=== PATIENT | female | born 1935 | race Caucasian/White ===

== ENCOUNTER 2017-09-30 23:15 | Inpatient (IN) | payer MEDICARE, BC ==
[~2017-09-30] VITALS: Ht 149.9 cm; Wt 54.4 kg
--- NOTE | ~2017-09-30 | PROC ---
[address] [address] PROCEDURE REPORT Name: SEAN MARCOS Room: [address] IN M.R.#: [id number] Admission: 10/01/17 Attend Phys: Karlos Mireles MD Discharge: 10/03/17 Date of : 35 Report #: [id number] THIS REPORT FOR: //name// For GI report, please see the Provation report in Perceptive 7 content. By: [id number] Records Staff MANAN /VON
[~2017-09-30 23:15] MED LIST: ASPIRIN81 M2 PO; EFFEXOR XR150 MG PO; ELIQUIS5 MG PO; FLORINEF ACETA0.1 MG PO; LASIX 20 MG TAB20 MG PO; LEVOTHYROXIN0.025 MG PO; LOPRESSOR25 PO; PACERONE 200 M200 M1 PO; PLAVIX 75 MG TA75 M1 PO; POTASSIUM20 PO; PREVACID 24HR15 MG PO
[2017-09-30 23:18] VITALS: BP 228/91
[2017-09-30] MEDS ORDERED: LASIX 20 MG TAB20 MG PO (23:21)
[2017-09-30] MEDS ORDERED: POTASSIUM20 PO (23:21)
[2017-09-30] MEDS ORDERED: LOPRESSOR25 PO (23:21)
[2017-09-30] MEDS ORDERED: ASPIR 8181 MG PO (23:22)
[2017-09-30] MEDS ORDERED: XARELTO15 MG PO (23:22)
[2017-10-01] VITALS (24 sets, daily range): BP systolic 101–212; BP diastolic 39–91
[2017-10-01] LABS: ABSOLUTE LYMPHOCYTES 1.1 thou/uL (0.8-5.3); ABSOLUTE MONOCYTES 0.7 thou/uL (0.0-1.2); ABSOLUTE NEUTROPHILS 3.9 thou/uL (1.6-8.1); BASOPHILS 0.2 %; EOSINOPHILS 0.1 %; HEMATOCRIT 31.6 % (37.0-47.0); HEMOGLOBIN 10.5 gm/dL (12.0-15.0); LYMPHOCYTES 18.6 %; MCH 27.9 pg (26.0-34.0); MCHC 33.3 g/dL (28.0-37.0); MCV 83.8 fL (80.0-100.0); MONOCYTES 12.1 %; MPV 7.2 fl. (7.2-11.1); NUCLEATED RBCS 0 /100WBC; PLATELET COUNT* 201 thou/uL (150-400); RBC 3.77 mil/uL (4.20-5.00); RDW-CV 14.8 % (10.5-14.5); WBC 5.7 thou/uL (4.0-11.0)
[2017-10-01 00:13] LABS: CALCIUM 8.4 mg/dL (8.5-10.1); CREATININE 1.1 mg/dL (0.6-1.3); POTASSIUM 3.9 mmol/L (3.5-5.1)
[2017-10-01 00:16] LABS: INR 1.5; PROTIME 14.2 Seconds (9.20-11.50)
[2017-10-01 00:17] LABS: ALBUMIN 3.5 g/dL (3.4-5.0); TOTAL BILIRUBIN 0.4 mg/dL (<0.1-1.0); TOTAL PROTEIN 6.9 g/dL (6.4-8.2)
--- NOTE | 2017-10-01 03:57 | NUR ---
ASSUMED CARE OF PATIENT AT APPROX 0220 THE PATIENT REMAINS AV PACED ON THE MONITOR UNDERLYING AFIB ON THE MONITOR O2 SAT MAINTAINED ON RA CONTINUES TO BE UP WITH ASSIST OF [address]. MERAZ CONTACTED REGARDING CONCERNS ADMIT VITALS 212/73 RUE, 200/72 LUE , HR 65 BPM RECEIVED 10MG LABETALOL IV RECEIVED IN ER AT 0042-- SINCE ADMIT BUSTED BLOOD VESSEL NOTED IN LEFT EYE DENIES HEADACHE OR NAUSEA EXCESSIVE AMOUNTS OF BLOOD POURING FROM THE RECTUM RECEIVED ORDERS DOCUMENTED 2 PERIPHERAL IV ACCESS OBTAINED LW AT 0415 SPOKEN WITH REVIEWED AVAILABLE LABS AND ABDOMINAL CT HISTORY ANTICOAGULATION HX REPORTED ORDERS FOR STAT H&H AND 2 U BLOOD ON STANDBY TYPE AND CROSS CALL RESULTS INTO HIM WHEN RECEIVED PROCEED WITH MOVE TO ICU STATES DECISION REGARDING TAG VS IR INTERVENTION WILL BE MADE ONCE H&H RECEIVED SAFETY INTERVENTIONS CONTINUE BED LOWERED WHEELS LOCKED CALL LIGHT IN REACH SIDE RAILS UP REPORT TO BE GIVEN TO MIGUEL A POLICE LIAISON OFFICER PATIENT TRANSFERRED OFF UNIT AT 0415 ALL PERSONAL ITEMS SENT WITH PATIENT
[2017-10-01 04:55] LABS: HEMATOCRIT 27.9 % (37.0-47.0); HEMOGLOBIN 9.2 gm/dL (12.0-15.0); MCH 27.9 pg (26.0-34.0); MCV 84.6 fL (80.0-100.0); MPV 7.3 fl. (7.2-11.1); RBC 3.3 mil/uL (4.20-5.00); RDW-CV 14.9 % (10.5-14.5); WBC 6.4 thou/uL (4.0-11.0)
--- NOTE | 2017-10-01 05:14 | NUR ---
PT TRANSFERED DOWN TO TELE AT 0430 ALERT AND ORIENTED VS AND ASSESSMENT STABLE NSR ON THE MONITOR. SKIN INTACT DENIES ANY COMPLAINTS. STAT H&H DRAWN WILL NOTIFY GI OF RESULTS.MONITORING PT FOR BLOOD IN STOOLS. WILL CONTINUE PLAN OF CARE
--- NOTE | 2017-10-01 06:48 | NUR ---
PAGED DR SHER WITH RESULTS OF STAT H&H AND INFORMED HIM OF VS AND PT HAD ONLY ONE MED BLOODY STOOL. DR SHER SAID TO MONITOR PT STOOLS AND VS. 0615 PTS HR 110 AND PT HAD ONE MORE BLOODY BM PAGED DR SHER AWAITING RETURN CALL.
--- NOTE | 2017-10-01 07:30 | NUR ---
0753 ASSUMED CARE OF PT. PLEASE SEE DOCMENTED ASSESSMENT. PT TRANSFERRED FROM [facility] BLEED. AFEBRILE. DENIES PAIN. B/P STABLE. AV PACED ON COMPOSER TEACHING ARTIST. H/H Q 2 HOURS. KEEPING NPO UNTIL SEEN BY GI. GOALS THIS SHIFT ARE TO: MONITOR FOR SYNCOPE, MONITOR H/H, AND MONITOR FOR BLEEDING.
[2017-10-01 07:40] LABS: HEMATOCRIT 25.4 % (37.0-47.0); HEMOGLOBIN 8.4 gm/dL (12.0-15.0)
--- NOTE | 2017-10-01 09:15 | NUR ---
PT ASSISTED UP TO BSC FOR BM. WHEN ASSISTING PT BACK TO BED, PT HAD A VAGAL EPISODE ON BSC AND BECAME UNRESPONSIVE. PT PLACED BACK INTO BED, HAD INCONTINENT EPISODE, PLACED FLAT IN BED FOR BLOOD PRESSURE SUPPORT. B/P STABLE AFTER PT BACK IN BED, W/SBP IN THE 160'S. PT AWOKE TO VERBAL STIMULI AND WAS ABLE TO TELL THIS NURSE WHO SHE WAS AND WHERE SHE WAS. GI PAGED. NEW ORDERS RCV'D FOR STAT RBC TAGGED SCAN AND TO GIVE ONE UNIT OF PRBC'S. HIMS NOTIFIED WELL.
[2017-10-01 10:03] LABS: HEMATOCRIT 23.9 % (37.0-47.0); HEMOGLOBIN 7.9 gm/dL (12.0-15.0)
--- NOTE | 2017-10-01 11:15 | NUR ---
PT TO NUCLEAR MED FOR STAT TAGGED RBC SCAN. ACCOMPANIED BY ANA Colunga RN AND ROOFER APPLICATOR. MINI REPORT GIVEN TO ANA Colunga. PRBC'S INFUSING. PT GIVEN ZOFRAN PRIOR TO SCAN FOR NAUSEA.
--- NOTE | 2017-10-01 11:20 | NUR ---
NUCLEAR MED TAGGED RBC SCAN STARTED AT THIS TIME.
--- NOTE | 2017-10-01 12:35 | NUR ---
PT BACK FROM NUCLEAR MED. NAUSEA RELIEVED BY COOL CLOTH AND PRN ZOFRAN. FIRST UNIT OF PRBC'S DONE INFUSING AT 1200. DR. SHER ON UNIT. AWAITING TAGGED RBC SCAN RESULTS.
[2017-10-01 13:38] LABS: INR 1.2; PROTIME 12.1 Seconds (9.20-11.50)
--- NOTE | 2017-10-01 13:51 | NUR ---
DR. WESLEY IN W/PT. DR. SHER ON THE UNIT. PT TO HAVE COLONOSCOPY TODAY.
--- NOTE | 2017-10-01 14:15 | NUR ---
PT BACK FROM OR VIA BED. THIS NURSE WILL RECOVER PT. FAMILY UPDATED ON PLAN OF CARE.
--- NOTE | 2017-10-01 18:33 | NUR ---
OUTCOME SUMMARY: PROGRESSING TOWARDS GOALS. VAGAL EPISODE THIS AM ON BSC. RCV'D 2 UNITS PRBC'S, LAST HGB AT 10.0-PT DID GO TO OR FOR COLONSOCOPY BUT W/NO BOWEL PREP, DR. SHER UNABLE TO VISUALIZE WHERE BLEED IS COMING FROM. BOWEL PREP STARTED AT 1600 TONIGHT. NO BLOODY STOOLS SINCE PT CAME BACK FROM OR. PT WILL MOST LIKELY BE SCOPED TOMORROW OR TUESDAY DEPENDING ON HOW SHE HANDLES THE BOWEL PREP. B/P AND HR STABLE T/OUT THE DAY. PT IS AV PACED. OVERALL PROGNOSIS: GOOD.
[2017-10-01 20:25] LABS: HEMATOCRIT 34.3 % (37.0-47.0); HEMOGLOBIN 11.4 gm/dL (12.0-15.0); MCH 28.4 pg (26.0-34.0); MCHC 33.2 g/dL (28.0-37.0); MCV 85.3 fL (80.0-100.0); MPV 7.8 fl. (7.2-11.1); RBC 4.02 mil/uL (4.20-5.00); RDW-CV 14.6 % (10.5-14.5); WBC 7.1 thou/uL (4.0-11.0)
[2017-10-02] VITALS (8 sets, daily range): BP systolic 152–182; BP diastolic 59–105
[2017-10-02 01:23] LABS: HEMATOCRIT 32.6 % (37.0-47.0); MCH 28.7 pg (26.0-34.0); MCHC 33.6 g/dL (28.0-37.0); MCV 85.3 fL (80.0-100.0); MPV 7.3 fl. (7.2-11.1); RBC 3.82 mil/uL (4.20-5.00); RDW-CV 14.3 % (10.5-14.5); WBC 7.9 thou/uL (4.0-11.0)
--- NOTE | 2017-10-02 04:59 | NUR ---
PROGRESSION TOWARDS GOALS. ASSESSMENT AND VS OBTAINED, SEE CHARTING.DRAFTER (CAD) ELECTRICAL ON TRACING A PACED. PT FINISHED HER COLON PREP LAST NIGHT AND HAS HAD SEVERAL BM. BM WAS LIGHT BROWN WITH TINTS OF BLOOD THROUGH OUT. AROUND 0000 PT HAD ASKED IF THERE WAS A CATHETER FOR YOUR BOTTOM AND THE FLEXISEAL WAS EXPLAINED TO THE PT. PT AGREED TO PLACE THE FLEXISEAL IN. SHE STILL HAS SOME BM COMING OUT AROUND THE FLEXISEAL. CBC HAS BEEN DRAWN EVERY 6 HRS AND THE H AND H HAVE BEEN STABLE.
[2017-10-02 05:37] LABS: HEMATOCRIT 31.7 % (37.0-47.0); HEMOGLOBIN 10.6 gm/dL (12.0-15.0); MCH 28.4 pg (26.0-34.0); MCHC 33.4 g/dL (28.0-37.0); MCV 84.9 fL (80.0-100.0); MPV 7.7 fl. (7.2-11.1); RBC 3.74 mil/uL (4.20-5.00); RDW-CV 14.5 % (10.5-14.5); WBC 9.4 thou/uL (4.0-11.0)
[2017-10-02 05:57] LABS: CALCIUM 8.1 mg/dL (8.5-10.1); CREATININE 0.8 mg/dL (0.6-1.3); MAGNESIUM 2.1 mg/dL (1.8-2.4); POTASSIUM 3.7 mmol/L (3.5-5.1)
--- NOTE | 2017-10-02 07:30 | NUR ---
0730 ASSUMED CARE OF PT. PLEASE SEE DOCUMENTED ASSESSMENT. PT NPO FOR POSSIBLE COLONOSCOPY SCOPE TODAY (PER HIMS). DR. MERAZ IN TO SEE PT. PT NOW MED/SURG TELE. BOWEL PREP COMPLETED. DENIES PAIN. ROOM AIR. GOALS THIS SHIFT ARE TO: MONITOR CBC, MONITOR BLEEDING, AND COLONOSCOPY.
[2017-10-02 07:42] LABS: HEMATOCRIT 30.1 % (37.0-47.0); HEMOGLOBIN 10.3 gm/dL (12.0-15.0); MCH 28.7 pg (26.0-34.0); MCHC 34.1 g/dL (28.0-37.0); MPV 7.4 fl. (7.2-11.1); RBC 3.58 mil/uL (4.20-5.00); RDW-CV 14.2 % (10.5-14.5); WBC 7.9 thou/uL (4.0-11.0)
--- NOTE | 2017-10-02 09:30 | NUR ---
UPDATED DR. SHER ON PT STATUS. NEW ORDERS RCV'D. PT TO START GOLYTELY PREP. CLEAR LIQUIDS THROUGH TOMORROW AT 8 AM, THEN NPO AFTER 8 AM TOMORROW. PT TO HAVE COLONOSCOPY TOMORROW. HOUSE SUP NOTIFIED TO PLACE PT ON SCHEDULE.
[2017-10-02 10:01] LABS: HEMATOCRIT 29.7 % (37.0-47.0); HEMOGLOBIN 10.1 gm/dL (12.0-15.0)
[2017-10-02 13:45] LABS: HEMATOCRIT 25.5 % (37.0-47.0); HEMOGLOBIN 8.7 gm/dL (12.0-15.0); MCHC 33.9 g/dL (28.0-37.0); MCV 85.5 fL (80.0-100.0); MPV 7.3 fl. (7.2-11.1); RBC 2.99 mil/uL (4.20-5.00); RDW-CV 14.4 % (10.5-14.5); WBC 6.3 thou/uL (4.0-11.0)
--- NOTE | 2017-10-02 14:45 | NUR ---
[facility] FAXED TO [facility].
--- NOTE | 2017-10-02 15:25 | NUR ---
PT TRANSFERRED UPSTAIRS TO ROOM 218 VIA W/CHAIR. ALL BELONGINGS SENT W/PT. REPORT GIVEN TO TUSHAR MOBLEY. NOTIFIED PT'S DAUGHTER, SRIDHAR, THAT PT HAD TRANSFERRED UPSTAIRS TO [facility].
--- NOTE | 2017-10-02 16:47 | NUR ---
RECEIVED REPORT FROM ABHAY IN ICU. PT TRANSFERED TO TELE FLOOR AT 1530. PT ORIENTED TO ROOM, BED AND CALL LIGHT. PT COMMUNICATES UNDERSTANDING. VSS. O2 SAT 98% ON RA. PT A&O X4, PLEASANT. REVIEWED CHARTING DONE BY NURSE ABHAY, THIS NURSE AGREES WITH CHARTING COMPLETED. DANIELLE CATHETER IS NOW OUT. PT CONTINUING WITH BOWEL PREP FOR COLONOSCOPY TOMORROW. USING BEDSIDE COMMODE WITH STANDBY ASSIST. PT ON CLD THROUGHT TODAY; NPO IN AM. DAUGHTER AT BEDSIDE. LOW FALL RISK PRECAUTIONS IN PLACE. CALL LIGHT IS WITHIN REACH. WILL CONTINUE TO MONITOR.
--- NOTE | 2017-10-02 18:22 | NUR ---
VSS. PT REMAINS A&O X4. CORPORATE TRAVEL CONSULTANT IN PLACE WITH NO CHANGES. PT DENIES PAIN OR DISCOMFORT. PT TOLERATING CLD. PT CONTINUING WITH BOWEL PREP - STOOLS DARK YELLOW NOW. DAUGHTER WAS AT BEDSIDE BUT HAS NOW GONE HOME. IV PATENT AND INFUING IVF. PT CURRENTLY SITTING IN BEDSIDE CHAIR. LOW FALL RISK PRECAUTIONS ARE IN PLACE. CALL LIGHT IS WITHIN REACH. HOURLY ROUNDING PERFORMED. WILL CONTINUE TO MONITOR FOR DURATION OF SHIFT.
[2017-10-03] VITALS (7 sets, daily range): BP systolic 133–185; BP diastolic 59–82
--- NOTE | 2017-10-03 00:46 | NUR ---
PATIENT AWAKE IN BED, ALERT AND ORIENTED X 4, SCHEDULED FOR COLONOSCOPY IN AFTERNOON. NPO AFTER 8AM. CONT. CL LIQ. DENIES COMPLAINTS OF PAIN OR DISCOMFORT AT THIS TIME.
[2017-10-03 05:37] LABS: HEMATOCRIT 27.4 % (37.0-47.0); HEMOGLOBIN 9.2 gm/dL (12.0-15.0); MCH 28.5 pg (26.0-34.0); MCHC 33.8 g/dL (28.0-37.0); MCV 84.4 fL (80.0-100.0); MPV 7.9 fl. (7.2-11.1); RBC 3.25 mil/uL (4.20-5.00); RDW-CV 14.3 % (10.5-14.5); WBC 5.9 thou/uL (4.0-11.0)
--- NOTE | 2017-10-03 06:30 | NUR ---
PATIENT CONT. TO HAVE STOOL, CLEAR TO YELLOW. NPO AFTER 8AM.
--- NOTE | 2017-10-03 11:49 | NUR ---
Pt out of room for colon, will f/u later
--- NOTE | 2017-10-03 12:27 | EKG ---
[place] [address] ELECTROCARDIOGRAM REPORT Name: SEAN MARCOS Room: [address] ADM IN .R.#: [id number] Admission: 10/01/17 Attend Phys: Karlos Mireles MD Discharge: Date of : 35 Report #: [id number] THIS REPORT FOR: //name// [facility] Test Date: 2017-10-03 Test Time: 10:24:39 Pat Name: SEAN MARCOS Department: Room: [address] Gender: F Vp Analytics: ARIS : 1935 Requested By: Sheron Pierre Order Number: [id number] Alexandra MD: Teodoro Rouse Measurements Intervals [place] Rate: 61 P: 86 DC: 165 QRS: 37 QRSD: 89 T: 33 QT: 565 QTc: 570 Interpretive Statements Sinus rhythm Borderline T wave abnormalities Prolonged QT interval Compared to ECG 02/23/2017 21:05:41 Myocardial infarct finding no longer present Possible ischemia no longer present Electronically Signed On 10-03-2017 12:27:43 CDT by Teodoro Rouse [email or web address] <ELECTRONICALLY SIGNED> By: Teodoro Rouse MD, FACC 10/03/17 1227 1024 1024 Teodoro Rouse MD, [facility] /EPI
[2017-10-03] MEDS ORDERED: MIRALAX17 GM PO (16:30)
--- NOTE | 2017-10-03 19:40 | NUR ---
WRITTEN AND VERBAL DISCHARGE INSTRUCTIONS GIVEN WITH UNDERSTANDING. ESCORTED TO CAR BY FAMILY AND STAFF PER W/C. DISMISSED.
--- NOTE | 2017-10-10 15:07 | CON ---
[address] [address] CONSULTATION Name: SEAN MARCOS Room: [address] IN M.R.#: [id number] Admission: 10/01/17 Attend Phys: Karlos Mireles MD Discharge: 10/03/17 Date of : 35 Report #: [id number] THIS REPORT FOR: //name// CC: Lg Mireles DATE OF SERVICE: 10/01/2017 REASON FOR CONSULT: GI bleed. HISTORY OF PRESENT ILLNESS: This is an 82-year-old female who is well known to us as she had history of choledocholithiasis and underwent ERCP and stenting back in 03/2017. The patient presented with GI bleed and her hemoglobin has gradually dropped. The patient is on anticoagulation therapy for AFib. Apparently, the last dose was on night. PAST MEDICAL HISTORY: Significant for history of choledocholithiasis, status post ERCP and cholecystectomy, depression, hypertension, hypothyroidism, AFib, appendectomy, history of pacemaker placement. ALLERGIES: SIGNIFICANT TO MEPERIDINE AND CODEINE. MEDICATIONS: Please refer to hospital [facility]. SOCIAL HISTORY: The patient denies tobacco or alcohol use. FAMILY HISTORY: Noncontributory. PHYSICAL EXAMINATION: VITAL SIGNS: Reveals blood pressure of 136/59, respirations 17, pulse 60, temperature 97.3. LUNGS: Clear. CARDIOVASCULAR: Irregular, but regular rate. ABDOMEN: Soft, nontender, nondistended. Bowel sounds are positive. LABORATORY DATA: Revealed sodium of 138, potassium 3.9, BUN is 14, creatinine 1.1, glucose is 121. Liver function test is within normal limits. INR is 1.5. WBC is 6.4 with hemoglobin of 7.9 down from 10.5, platelet is 187. IMAGING: CT of abdomen and pelvis was obtained. There is diverticulosis throughout the sigmoid colon and thickened wall of the sigmoid. There is no evidence of pericolonic abscess or high grade pelvic inflammation. ASSESSMENT AND PLAN: We will type and cross her with 2 [place] [address] CONSULTATION Name: SEAN MARCOS Room: [address] IN ..#: [id number] Admission: 10/01/17 Attend Phys: Karlos Mireles MD Discharge: 10/03/17 Date of : 35 Report #: [id number] transfuse 1 unit. We will consider RBC tagged scan and if this is a colonic bleed, we may consider performing a colonoscopy. We will make further recommendation once the RBC tag scan results available. <ELECTRONICALLY SIGNED> By: Sheron Pierre MD 10/10/17 1507 1227 [id number] Pierre MD /nt
[2018-05-02] MEDS ORDERED: XARELTO15 MG PO (09:43)
[2018-05-02] MEDS ORDERED: COREG25 MG PO (13:10)
[2018-05-02] MEDS ORDERED: KEFLEX500 M1 PO (13:10)
== END 2017-10-03 19:40 | disposition home or self-care (01) | DRG 813 ==
LOC: M.ERS 23:15 → M.2W 10-01 01:16 → M.TBA-ER 10-01 01:16 → M.ICU 10-01 01:16 → M.2W 10-01 02:03 → M.ICU 10-01 04:33 → M.2W 10-02 15:35
PROVIDERS: Internal Medicine Gastroenterology; Nurse Practitioner Family; ADMIT Internal Medicine
PROC: 30233N1 Transfusion of Nonautologous Red Blood Cells into Peripheral Vein, Percutaneous Approach (ICD-10-PCS; principal; 2017-10-01)
PROC: 0DJD8ZZ Inspection of Lower Intestinal Tract, Via Natural or Artificial Opening Endoscopic (ICD-10-PCS; principal; 2017-10-01)
PROC: 0DJD8ZZ Inspection of Lower Intestinal Tract, Via Natural or Artificial Opening Endoscopic (ICD-10-PCS; 2017-10-03)
DX: D68.32 Hemorrhagic disorder due to extrinsic circulating anticoagulants (principal); K57.31 Diverticulosis of large intestine without perforation or abscess with bleeding; D62 Acute posthemorrhagic anemia; I16.1 Hypertensive emergency; F32.9 Major depressive disorder, single episode, unspecified; I10 Essential (primary) hypertension; E03.9 Hypothyroidism, unspecified; K21.9 Gastro-esophageal reflux disease without esophagitis; K64.4 Residual hemorrhoidal skin tags; K64.8 Other hemorrhoids; Z66 Do not resuscitate; I48.91 Unspecified atrial fibrillation; T45.7X5A Adverse effect of anticoagulant antagonists, vitamin K and other coagulants, initial encounter; Y92.89 Other specified places as the place of occurrence of the external cause; Z90.49 Acquired absence of other specified parts of digestive tract; Z90.710 Acquired absence of both cervix and uterus; Z90.722 Acquired absence of ovaries, bilateral; Z95.0 Presence of cardiac pacemaker; Z88.5 Allergy status to narcotic agent; Z88.8 Allergy status to other drugs, medicaments and biological substances; Z82.49 Family history of ischemic heart disease and other diseases of the circulatory system

== ENCOUNTER → 2018-05-02 | Outpatient (CLI) | payer MEDICARE, BC ==
[~2018-05-02] VITALS: Ht 152.4 cm; Wt 49.9 kg
[~2018-05-02] MED LIST changes: +ASPIR 8181 MG PO; +COREG25 MG PO; +KEFLEX500 M1 PO; +MIRALAX17 GM PO; +XARELTO15 MG PO
[2018-05-02 09:39] VITALS: BP 168/94
[2018-05-02 09:45] LABS: HEMATOCRIT 41.4 % (37.0-47.0); HEMOGLOBIN 13.1 gm/dL (12.0-15.0); MCH 25.6 pg (26.0-34.0); MCHC 31.6 g/dL (28.0-37.0); MCV 81.1 fL (80.0-100.0); MPV 7.7 fl. (7.2-11.1); RBC 5.1 mil/uL (4.20-5.00); RDW-CV 15.6 % (10.5-14.5); WBC 7.9 thou/uL (4.0-11.0)
[2018-05-02 09:48] LABS: ANION GAP 10 mmol/L (7-16); APTT 29.9 Seconds (25.0-31.3); BUN 9 mg/dL (7-18); CALCIUM 8.8 mg/dL (8.5-10.1); CHLORIDE 98 mmol/L (98-107); CO2 28 mmol/L (21-32); CREATININE 1.1 mg/dL (0.6-1.3); GLUCOSE 86 mg/dL (70-99); POTASSIUM 3.4 mmol/L (3.5-5.1); PROTIME 10.4 Seconds (9.20-11.50); SODIUM 136 mmol/L (136-145)
[2018-05-02 09:52] LABS: ALBUMIN 3.7 g/dL (3.4-5.0); ALKALINE PHOSPHATASE 123 U/L (46-116); CHOLESTEROL 274 mg/dL (<200); HDL CHOLESTEROL 59 mg/dL (>40); LDL CHOLESTEROL 190 mg/dL (<100); SGOT 22 U/L (15-37); SGPT 15 U/L (30-65); TC:HDL 4.6 Ratio (Not establshd); TOTAL BILIRUBIN 0.4 mg/dL (<0.1-1.0); TRIGLYCERIDE 127 mg/dL (<150); VLDL 25 mg/dL (<40)
[2018-05-02 09:53] LABS: SERUM ASSESSMENT Clear
[2018-05-02 11:46] VITALS: BP 184/89
[2018-05-02 12:15] VITALS: BP 196/90
[2018-05-02 12:30] VITALS: BP 196/90
[2018-05-02 12:45] VITALS: BP 186/89
--- NOTE | 2018-05-16 19:37 | CARD ---
[address] [address] CARDIAC CATH REPORT Name: SEAN MARCOS Room: [facility] Santos#: [id number] Admission: 05/02/18 Attend Phys: Vance Guerrero MD Discharge: Date of : 35 Report #: [id number] THIS REPORT FOR: //name// APPROVED REPORT Study performed: 05/02/2018 10:20:17 Patient Status: Out-Patient Room #: Event Personnel: Jamie Parra Digital Imaging Specialist, Ana Baugh RTR Monitor, Asa Kuhn (Rachell) Elizabeth Chicas Brittany RN Professor Of Food Biochemistry Exam: Generator Change for a Dual Chamber Permanent Pacemaker The patient is a 83 year-old female with a history of . Conscious Sedation Start time: 11:15 End Time: 11:29 Fentanyl 25 mcg Versed 1 mg Implanted Devices: [address], serial number [id number] Procedure The patient underwent informed consent. We discussed the details of the procedure including the risks, which include, but not limited to bleeding, infection, vascular damage, cardiac perforation, and pneumothorax. After informed consent was obtained the patient was brought to the interventional radiology lab. The area of the left chest was prepped and draped in sterile fashion. Local anesthesia was achieved with 1% lidocaine. Next after an initial incision was made over the existing dual-chamber pulse generator the generator was explanted using electrocautery and blunt dissection. The generator was detached from the atrial and ventricular lead. The pacemaker pocket was flushed with antibody solution. A new dual-chamber pacing generator was attached to the atrial and ventricular lead. The redundant lead and generator were replaced within the right pocket. The deep tissues were closed with interrupted stitches of 2-0 Vicryl. The skin incision was then closed with a single subcuticular stitch of 4-0 Vicryl. Several Steri-Strips were placed across the incision. A sterile Telfa dressing was then covered with a Tegaderm. The patient tolerated the procedure well without consultation. Electrode Parameters P Wave: 1.8 mV R Wave: greater than 12.0 [place] [address] CARDIAC CATH REPORT Name: SEAN MARCOS [id number] Admission: 05/02/18 Attend Phys: Vance Guerrero MD Discharge: Date of : 35 Report #: [id number] Atrial Threshold: not performed Ventricular Threshold: 1.25 V at 1.0 ms Atrial Resistance: 400 ohms Ventricular Resistance: 630 ohms Conclusion 1. Dual-chamber pulse generator at elective replacement. 2. Dual-chamber pulse generator replaced. Recommendations 1. Follow-up site check in one week. 2. Follow-up device interrogation in one month. <ELECTRONICALLY SIGNED> By: Jamie Parra MD, FACC 05/16/181936 36 36Michaeannita Parra MD, FACC /INF
--- NOTE | 2018-05-19 17:39 | H ---
[address] [address] HISTORY AND PHYSICAL Name: SEAN MARCOS Room: [facility]#: [id number] Admission: 05/02/18 Attend Phys: Vance Guerrero MD Discharge: Date of : 35 Report #: [id number] THIS REPORT FOR: //name// CC: Lg Guerrero ADMITTING DIAGNOSES: Sick sinus syndrome, status post pacemaker placement with pacemaker generator at elective replacement. HISTORY OF PRESENT ILLNESS: The patient is an 83-year-old white female with coronary artery disease and atrial fibrillation with sick sinus syndrome, status post pacemaker placement. Her pacemaker has reached elective replacement. She is without cardiac complaint at this time. PAST MEDICAL HISTORY: 1. Coronary artery disease. 2. Sick sinus syndrome, atrial fibrillation. 3. Pacemaker placement. 4. Hyperlipidemia. 5. Hypertension. ALLERGIES: CODEINE, DEMEROL. CURRENT MEDICATIONS: Lasix 20 mg daily, Prevacid 15 mg daily, metoprolol 25 mg half tablet b.i.d., potassium chloride 20 mEq daily, Xarelto 15 mg daily, Effexor XR 150 mg b.i.d. REVIEW OF SYSTEMS: As per HPI. PHYSICAL EXAMINATION: VITAL SIGNS: Blood pressure 166/86, heart rate 80. GENERAL: This is a pleasant lady in no distress. Mood and affect appropriate. HEENT: Extraocular muscles intact. Mucous membranes moist. NECK: Shows no jugular venous distention. No carotid bruits. CHEST: Reveals clear lung whipple without wheezes, rales or rhonchi. CARDIOVASCULAR: Reveals a regular rhythm with normal S1 and S2. I do not appreciate gallop or murmur. ABDOMEN: Reveals normal bowel sounds. The abdomen is soft, nontender. EXTREMITIES: Shows no clubbing, cyanosis or edema. Peripheral pulses are palpable. SKIN: Warm and dry. IMPRESSION AND RECOMMENDATIONS: 1. Coronary artery disease. 2. Sick sinus syndrome. 3. Paroxysmal atrial fibrillation. 4. Status post dual [place] [address] HISTORY AND PHYSICAL Name: SEAN MARCOS [id number] Admission: 05/02/18 Attend Phys: Vance Guerrero MD Discharge: Date of : 35 Report #: [id number] 5. Pacemaker generator elective replacement. PLAN: The patient is being admitted for elective generator replacement. Continue home medications as outlined above. <ELECTRONICALLY SIGNED> By: Jamie Parra MD, FACC 05/19/18 1739 1824 1848Micmimi Parra MD, FACC /nt
== END | disposition home or self-care (01) ==
LOC: M.CL 03-29 11:30
PROVIDERS: Internal Medicine Cardiovascular Disease
DX: Z45.010 Encounter for checking and testing of cardiac pacemaker pulse generator [battery] (principal); I48.91 Unspecified atrial fibrillation; Z98.890 Other specified postprocedural states; Z88.6 Allergy status to analgesic agent; Z79.899 Other long term (current) drug therapy; Z90.49 Acquired absence of other specified parts of digestive tract

== ENCOUNTER → 2018-05-19 | Outpatient (CLI) | payer MEDICARE, BC ==
[2018-05-19 15:49] LABS: CALCIUM 8.9 mg/dL (8.5-10.1); CREATININE 1.1 mg/dL (0.6-1.3); POTASSIUM 3.9 mmol/L (3.5-5.1)
== END ==
LOC: M.LAB 15:14
PROVIDERS: Nurse Practitioner Family
DX: I10 Essential (primary) hypertension (principal)

== ENCOUNTER → 2018-06-02 | Outpatient (CLI) | payer MEDICARE, BC ==
[2018-06-02 14:13] LABS: ALBUMIN 3.6 g/dL (3.4-5.0); CALCIUM 9.2 mg/dL (8.5-10.1); CREATININE 1.2 mg/dL (0.6-1.3); DIRECT BILIRUBIN 0.1 mg/dL (<0.1-0.3); POTASSIUM 4.4 mmol/L (3.5-5.1); TOTAL BILIRUBIN 0.5 mg/dL (<0.1-1.0); TOTAL PROTEIN 7.3 g/dL (6.4-8.2)
[2018-06-02 18:52] LABS: CHOLESTEROL 270 mg/dL (<200); HDL CHOLESTEROL 56 mg/dL (>40); LDL CHOLESTEROL 182 mg/dL (<100); TC:HDL 4.8 Ratio (Not establshd); TRIGLYCERIDE 162 mg/dL (<150); VLDL 32 mg/dL (<40)
[2018-06-02 18:54] LABS: SERUM ASSESSMENT Clear
== END ==
LOC: M.LAB 13:38
PROVIDERS: Nurse Practitioner Family
DX: E78.2 Mixed hyperlipidemia (principal); I10 Essential (primary) hypertension

== ENCOUNTER → 2018-09-11 | Outpatient (CLI) | payer MEDICARE, BC ==
--- NOTE | 2018-09-11 16:18 | 2DMMODE ---
[place] [address] 2 D/M-MODE ECHOCARDIOGRAM Name: SEAN MARCOS Room: [facility]#: [id number] Admission: 09/11/18 Attend Phys: Vance Guerrero, Discharge: Date of : 35 Date of Service: 09/11/18 1618 Report #: [id number] THIS REPORT FOR: //name// APPROVED REPORT Study performed: 09/11/2018 15:12:48 EXAM: Comprehensive 2D, Doppler, and color-flow Echocardiogram Patient Location: Out-Patient BSA: 1.48 HR: 60 bpm BP: 148/58 mmHg Other Information Study Quality: Good Indications Congestive Heart Failure 2D Dimensions IVSd: 8.50 (7-11mm) LVOT Diam: 19.77 (18-24mm) LVDd: 43.84 mm PWd: 8.39 (7-11mm) Ascending Ao: 29.22 (22-36mm) LVDs: 24.91 (25-40mm) Aortic Root: 26.43 mm Volumes Left Atrial Volume (Systole) LA ESV Index: 29.60 mL/m2 Aortic Valve AoV Peak Sagar.: 0.99 m/s AO Peak Gr.: 3.92 mmHg LVOT Max P.86 mmHg AO Mean Gr.: 1.76 mmHg LVOT Mean P.71 mmHg LVOT Max V: 0.98 m/s AO V2 VTI: 18.46 cm LVOT Mean V: 0.60 m/s MARTY (VTI): 3.25 cm2 LVOT V1 VTI: 19.56 cm AI Trigg: 1.96 m/s2 AI PHT: 680.10 ms Mitral Valve E/A Ratio: 2.77 MV Decel. Time: 203.05 ms MV E Max Sagar.: 0.70 m/[place] [address] 2 D/M-MODE ECHOCARDIOGRAM Name: SEAN MARCOS Room: [facility]#: [id number] Admission: 09/11/18 Attend Phys: Vance Guerrero, Discharge: Date of : 35 Date of Service: 09/11/18 1618 Report #: [id number] MV PHT: 58.88 ms MVA (PHT): 3.74 cm2 TDI E/Lateral E': 7.78 E/Medial E': 11.67 Medial E' Sagar.: 0.06 m/s Lateral E' Sagar.: 0.09 m/s Pulmonary Valve PV Peak Sagar.: 0.77 m/s PV Peak Gr.: 2.39 mmHg Tricuspid Valve RAP Estimate: 5.00 mmHg TR Peak Gr.: 29.80 mmHg RVSP: 34.80 mmHg PA Pressure: 34.80 mmHg Left Ventricle The left ventricle is normal size. There is normal LV segmental wall motion. There is normal left ventricular wall thickness. Left ventricular systolic function is normal. The left ventricular ejection fraction is within the normal range. LVEF is 55-60%. The left ventricular diastolic function is normal. Right Ventricle The right ventricle is normal size. The right ventricular systolic function is normal. Pacemaker lead is present in the right ventricle. Atria Left atrium is mildly dilated. The right atrium size is normal. Aortic Valve The aortic valve is normal in structure. Mild aortic regurgitation. There is no aortic valvular stenosis. Mitral Valve Mitral valve leaflets are thickened. Mild mitral regurgitation. No evidence of mitral valve stenosis. Tricuspid Valve The tricuspid valve is normal in structure. Mild tricuspid regurgitation. estimated pa pressure 40 mm Hg Pulmonic Valve The pulmonary valve is normal in structure. [place] [address] 2 D/M-MODE ECHOCARDIOGRAM Name: SEAN MARCOS Room: [facility]#: [id number] Admission: 09/11/18 Attend Phys: Vance Guerrero, Discharge: Date of : 35 Date of Service: 09/11/18 1618 Report #: [id number] Great Vessels The aortic root is normal in size. IVC is normal in size and collapses >50% with inspiration. Pericardium There is no pericardial effusion. <Conclusion> LVEF is 55-60%. Left atrium is mildly dilated. Mild aortic regurgitation. Mild mitral regurgitation. Mild tricuspid regurgitation. estimated pa pressure 40 mm Hg <ELECTRONICALLY SIGNED> By: Teodoro Rouse MD, FACC 09/11/18 1618 1618 1618 Teodoro Rouse MD, FACC /INF
== END ==
LOC: M.CRD 15:00
DX: I08.3 Combined rheumatic disorders of mitral, aortic and tricuspid valves (principal); I11.0 Hypertensive heart disease with heart failure; I50.22 Chronic systolic (congestive) heart failure; I48.0 Paroxysmal atrial fibrillation; Z88.5 Allergy status to narcotic agent; Z88.8 Allergy status to other drugs, medicaments and biological substances

== ENCOUNTER 2018-09-19 10:31 | Emergency (ER) | payer MEDICARE, BC ==
[~2018-09-19] VITALS: Ht 152.4 cm; Wt 50.8 kg
[2018-09-19] MEDS ORDERED: CEFDINIR300 MG PO (10:57)
[2018-09-19] MEDS ORDERED: COZAAR 25 MG TA25 M1 PO (10:57)
[2018-09-19] MEDS ORDERED: LASIX 20 MG TAB20 MG PO (10:58)
[2018-09-19] MEDS ORDERED: LANSOPRAZOLE15 MG PO (10:59)
[2018-09-19] MEDS ORDERED: LOPRESSOR50 PO (10:59)
[2018-09-19] MEDS ORDERED: PREDNISONE 20 M20 M1 PO (11:18)
[2018-09-19] MEDS ORDERED: AUGMENTIN 875-1 EACH PO (11:18)
[2018-09-19 11:27] VITALS: BP 180/63
[2018-09-19] MEDS ORDERED: NORCO 5-325 TA1 EACH PO (16:27)
--- NOTE | 2018-09-20 16:01 | EKG ---
[place] [address] ELECTROCARDIOGRAM REPORT Name: SEAN MARCOS Room: [facility]#: [id number] Admission: 09/19/18 Attend Phys: Discharge: 09/19/18 Date of : 35 Report #: [id number] THIS REPORT FOR: //name// [facility] ED Test Date: 2018-09-19 Test Time: 14:43:21 Pat Name: SEAN MARCOS Department: Room: Gender: F [employer] Supervisor: Barbara SALDIVAR : 1935 Requested By: Eric Stephen Order Number: [id number] MD: Dean Campos Measurements Intervals [place] Rate: 60 P: [place]: 213 QRS: 19 QRSD: 81 T: 57 QT: 473 QTc: 473 Interpretive Statements Atrial-paced rhythm Baseline wander in lead(s) V1,V2 Compared to ECG 10/03/2017 10:24:39 Sinus rhythm no longer present Electronically Signed On 09-20-2018 16:01:08 MEAT GRADING MACHINE OPERATOR by Dean Campos [email or web address] <ELECTRONICALLY SIGNED> By: Dean Campos MD, [facility] 09/20/18 1601 1443 1443 Dean Campos MD, [facility] /EPI
== END 2018-09-19 11:28 | disposition home or self-care (01) ==
LOC: M.ERS 10:31
DX: J32.9 Chronic sinusitis, unspecified (principal); K02.9 Dental caries, unspecified; I48.91 Unspecified atrial fibrillation; Z90.49 Acquired absence of other specified parts of digestive tract; Z88.5 Allergy status to narcotic agent; Z88.8 Allergy status to other drugs, medicaments and biological substances; Z90.710 Acquired absence of both cervix and uterus

== ENCOUNTER 2018-09-19 14:36 | Emergency (ER) | payer MEDICARE, BC ==
[~2018-09-19] VITALS: Ht 152.4 cm; Wt 50.8 kg
[~2018-09-19 14:36] MED LIST changes: +AUGMENTIN 875-1 EACH PO; +CEFDINIR300 MG PO; +COZAAR 25 MG TA25 M1 PO; +LANSOPRAZOLE15 MG PO; +LOPRESSOR50 PO; +PREDNISONE 20 M20 M1 PO
[2018-09-19 15:20] LABS: ABSOLUTE BASOPHILS 0.1 thou/uL (0.0-0.2); ABSOLUTE LYMPHOCYTES 1.2 thou/uL (0.8-5.3); ABSOLUTE MONOCYTES 0.6 thou/uL (0.0-1.2); ABSOLUTE NEUTROPHILS 3.8 thou/uL (1.6-8.1); EOSINOPHILS 0.1 %; HEMATOCRIT 38.1 % (37.0-47.0); HEMOGLOBIN 12.4 gm/dL (12.0-15.0); LYMPHOCYTES 21.8 %; MCH 26.4 pg (26.0-34.0); MCHC 32.5 g/dL (28.0-37.0); MCV 81.1 fL (80.0-100.0); MPV 7.9 fl. (7.2-11.1); NUCLEATED RBCS 0 /100WBC; PLATELET COUNT* 223 thou/uL (150-400); POLYS 66.1 %; RDW-CV 15.5 % (10.5-14.5); WBC 5.7 thou/uL (4.0-11.0)
[2018-09-19 15:28] LABS: ALBUMIN 3.8 g/dL (3.4-5.0); CALCIUM 9.1 mg/dL (8.5-10.1); CREATININE 1.2 mg/dL (0.6-1.3); POTASSIUM 4.5 mmol/L (3.5-5.1); TOTAL BILIRUBIN 0.5 mg/dL (<0.1-1.0); TOTAL PROTEIN 7.6 g/dL (6.4-8.2)
[2018-09-19] MEDS ORDERED: NORCO 5-325 TA1 EACH PO (16:27)
[2018-09-19 16:47] VITALS: BP 134/61
== END 2018-09-19 16:48 | disposition home or self-care (01) ==
LOC: M.ERS 14:36
PROVIDERS: Family Medicine
DX: I10 Essential (primary) hypertension (principal); K08.89 Other specified disorders of teeth and supporting structures; I48.91 Unspecified atrial fibrillation; Z88.5 Allergy status to narcotic agent; Z88.8 Allergy status to other drugs, medicaments and biological substances; Z90.49 Acquired absence of other specified parts of digestive tract; Z90.721 Acquired absence of ovaries, unilateral

== ENCOUNTER 2019-03-03 12:29 | Emergency (ER) | payer MEDICARE, BC ==
[~2019-03-03] VITALS: Ht 154.9 cm; Wt 51.7 kg
[~2019-03-03 12:29] MED LIST changes: +NORCO 5-325 TA1 EACH PO
[2019-03-03] MEDS ORDERED: KLOR-CON 1010 MEQ PO (12:43)
[2019-03-03] MEDS ORDERED: PRESERVISION A1 EACH PO (12:44)
[2019-03-03] MEDS ORDERED: ACID REDUCER (12:44)
[2019-03-03] MEDS ORDERED: ZANAFLEX4 MG (12:44)
[2019-03-03] MEDS ORDERED: ZETIA10 MG PO (12:44)
[2019-03-03] MEDS ORDERED: ONDANSETRON HCL4 M2 (12:44)
[2019-03-03] MEDS ORDERED: LIDODERM1 EACH TRANSDERM (14:19)
[2019-03-03 14:31] VITALS: BP 165/75
== END 2019-03-03 14:33 | disposition home or self-care (01) ==
LOC: M.ERS 12:29
DX: M79.661 Pain in right lower leg (principal); M25.552 Pain in left hip; M54.5 Low back pain; I48.91 Unspecified atrial fibrillation; Z90.49 Acquired absence of other specified parts of digestive tract; Z95.0 Presence of cardiac pacemaker; Z90.721 Acquired absence of ovaries, unilateral; Z88.5 Allergy status to narcotic agent; Z88.8 Allergy status to other drugs, medicaments and biological substances

== ENCOUNTER → 2019-03-12 | Outpatient (CLI) | payer MEDICARE, BC ==
[~2019-03-12] MED LIST changes: +ACID REDUCER; +KLOR-CON 1010 MEQ PO; +LIDODERM1 EACH TRANSDERM; +ONDANSETRON HCL4 M2; +PRESERVISION A1 EACH PO; +ZANAFLEX4 MG; +ZETIA10 MG PO
== END ==
LOC: M.CT 12:14
DX: M51.36 Other intervertebral disc degeneration, lumbar region (principal); M41.86 Other forms of scoliosis, lumbar region

== ENCOUNTER → 2020-08-29 | Outpatient (CLI) | payer MEDICARE, BC ==
[2020-08-29 11:58] LABS: ABSOLUTE LYMPHOCYTES 1.3 thou/uL (0.8-5.3); ABSOLUTE NEUTROPHILS 5.8 thou/uL (1.6-8.1); BASOPHILS 0.3 %; EOSINOPHILS 0.2 %; HEMATOCRIT 39.2 % (37.0-47.0); LYMPHOCYTES 15.7 %; MCH 29.1 pg (26.0-34.0); MCHC 33.1 g/dL (28.0-37.0); MCV 87.7 fL (80.0-100.0); MONOCYTES 11.9 %; NUCLEATED RBCS 0 /100WBC; PLATELET COUNT* 206 thou/uL (150-400); POLYS 71.9 %; RBC 4.47 mil/uL (4.20-5.00); RDW-CV 14.8 % (10.5-14.5); WBC 8.1 thou/uL (4.0-11.0)
[2020-08-29 12:04] LABS: CALCIUM 8.6 mg/dL (8.5-10.1); CREATININE 1.1 mg/dL (0.6-1.3); POTASSIUM 4.4 mmol/L (3.5-5.1)
== END ==
LOC: M.LAB 11:40
PROVIDERS: ATTEND Registered Nurse
DX: I48.0 Paroxysmal atrial fibrillation (principal); R53.83 Other fatigue

== ENCOUNTER 2021-01-07 21:52 | Emergency (ER) | payer MEDICARE, BC ==
[~2021-01-07] VITALS: Ht 157.5 cm; Wt 48.1 kg
[2021-01-07] MEDS ORDERED: COREG25 M1 PO (22:23)
[2021-01-07] MEDS ORDERED: CLONIDINE HCL0.1 MG PO (22:24)
[2021-01-07] MEDS ORDERED: COLESTIPOL HCL1 G1 PO (22:24)
[2021-01-07] MEDS ORDERED: COZAAR 25 MG TA25 M2 PO (22:25)
[2021-01-07] MEDS ORDERED: DIGOX125 MCG PO (22:25)
[2021-01-07 22:57] LABS: ABSOLUTE MONOCYTES 0.7 thou/uL (0.0-1.2); ABSOLUTE NEUTROPHILS 5.4 thou/uL (1.6-8.1); BASOPHILS 0.4 %; EOSINOPHILS 0.1 %; HEMATOCRIT 29.5 % (37.0-47.0); LYMPHOCYTES 13.4 %; MCH 28.9 pg (26.0-34.0); MCHC 33.7 g/dL (28.0-37.0); MCV 85.7 fL (80.0-100.0); MPV 6.9 fl. (7.2-11.1); NUCLEATED RBCS 0 /100WBC; PLATELET COUNT* 237 thou/uL (150-400); POLYS 76.1 %; RBC 3.44 mil/uL (4.20-5.00); RDW-CV 15.4 % (10.5-14.5); WBC 7.1 thou/uL (4.0-11.0)
[2021-01-07 23:06] LABS: CALCIUM 8.1 mg/dL (8.5-10.1); CREATININE 0.9 mg/dL (0.6-1.3); POTASSIUM 4.4 mmol/L (3.5-5.1)
[2021-01-07 23:16] LABS: ALBUMIN 3.2 g/dL (3.4-5.0); MAGNESIUM 1.9 mg/dL (1.8-2.4); TOTAL BILIRUBIN 0.3 mg/dL (<0.1-1.0); TOTAL PROTEIN 6.5 g/dL (6.4-8.2)
[2021-01-07 23:54] VITALS: BP 188/68
--- NOTE | 2021-01-08 14:35 | EKG ---
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: [facility] : 1935 Requested By: Pari Duran Order Number: [id number] MD: Dean Campos Measurements Intervals [place] Rate: 60 P: [place]: 422 QRS: 27 QRSD: 76 T: -42 QT: 468 QTc: 468 Interpretive Statements Atrial-paced rhythm Nonspecific repol abnormality, diffuse leads Compared to ECG 09/19/2018 14:43:21 No significant interval change Electronically Signed On 01-08-2021 14:35:45 CDT by Dean Campos [email or web address] <ELECTRONICALLY SIGNED> By: Dean Campos MD, [facility] 01/08/21 1435 2219 Dean Campos MD, [facility] /EPI
== END 2021-01-08 02:45 | disposition home or self-care (01) ==
LOC: M.ERS 21:52
PROVIDERS: Emergency Medicine
DX: I10 Essential (primary) hypertension (principal); I48.91 Unspecified atrial fibrillation; Z88.5 Allergy status to narcotic agent; Z88.8 Allergy status to other drugs, medicaments and biological substances; Z79.1 Long term (current) use of non-steroidal anti-inflammatories (NSAID); Z79.2 Long term (current) use of antibiotics; Z79.899 Other long term (current) drug therapy; Z90.89 Acquired absence of other organs; Z95.0 Presence of cardiac pacemaker

== ENCOUNTER 2021-01-31 21:10 | Inpatient (IN) | payer MEDICARE, BC ==
[~2021-01-31] VITALS: Ht 165.1 cm
[~2021-01-31 21:10] MED LIST changes: +CLONIDINE HCL0.1 MG PO; +COLESTIPOL HCL1 G1 PO; +COREG25 M1 PO; +COZAAR 25 MG TA25 M2 PO; +DIGOX125 MCG PO
[2021-01-31 21:12] VITALS: BP 159/64
[2021-01-31] MEDS ORDERED: FLECAINIDE ACET50 M2 PO (21:25)
[2021-01-31 21:54] LABS: ABSOLUTE BASOPHILS 0.1 thou/uL (0.0-0.2); ABSOLUTE LYMPHOCYTES 1.2 thou/uL (0.8-5.3); ABSOLUTE MONOCYTES 1.3 thou/uL (0.0-1.2); BASOPHILS 0.6 %; EOSINOPHILS 0.3 %; HEMATOCRIT 29.8 % (37.0-47.0); HEMOGLOBIN 9.9 gm/dL (12.0-15.0); LYMPHOCYTES 9.3 %; MCH 27.5 pg (26.0-34.0); MCHC 33.1 g/dL (28.0-37.0); MCV 82.9 fL (80.0-100.0); MONOCYTES 10.5 %; MPV 7.8 fl. (7.2-11.1); NUCLEATED RBCS 0 /100WBC; PLATELET COUNT* 210 thou/uL (150-400); POLYS 79.3 %; RBC 3.59 mil/uL (4.20-5.00); RDW-CV 15.4 % (10.5-14.5); WBC 12.6 thou/uL (4.0-11.0)
[2021-01-31 22:00] LABS: CALCIUM 7.9 mg/dL (8.5-10.1); CREATININE 1.2 mg/dL (0.6-1.3); POTASSIUM 4.8 mmol/L (3.5-5.1)
[2021-01-31 22:15] LABS: ALBUMIN 3.3 g/dL (3.4-5.0); MAGNESIUM 1.8 mg/dL (1.8-2.4); TOTAL BILIRUBIN 1.1 mg/dL (<0.1-1.0); TOTAL PROTEIN 6.8 g/dL (6.4-8.2)
[2021-01-31 22:36] LABS: URINE BILIRUBIN NEGATIVE (Negative); URINE BLOOD NEGATIVE (Negative); URINE CLARITY CLEAR; URINE COLOR DARK YELLOW; URINE GLUCOSE-RANDOM NEGATIVE (Negative); URINE KETONES NEGATIVE (Negative); URINE LEUKOCYTES-REFLEX NEGATIVE (Negative); URINE NITRITE-REFLEX NEGATIVE (Negative); URINE PROTEIN 1+ (Negative)
[2021-01-31 23:05] LABS: BE -3.9 mmol/L (-2 to +3); PCO2 32.3 mmHg (35.0-45.0); PO2 104.6 mmHg (75.0-100.0); pH 7.409 (7.340-7.450)
[2021-02-01] VITALS (7 sets, daily range): BP systolic 135–191; BP diastolic 57–72
[2021-02-01] MEDS ORDERED: NORVASC10 MG PO (13:17)
[2021-02-02 00:34] VITALS: BP 116/54
[2021-02-02 05:06] VITALS: BP 132/60
[2021-02-02 06:57] LABS: HEMATOCRIT 25.7 % (37.0-47.0); HEMOGLOBIN 8.7 gm/dL (12.0-15.0); MCH 27.9 pg (26.0-34.0); MCHC 33.8 g/dL (28.0-37.0); MCV 82.5 fL (80.0-100.0); MPV 8.3 fl. (7.2-11.1); RBC 3.12 mil/uL (4.20-5.00); RDW-CV 15.4 % (10.5-14.5); WBC 9.1 thou/uL (4.0-11.0)
[2021-02-02 07:15] LABS: ALBUMIN 2.6 g/dL (3.4-5.0); CALCIUM 7.5 mg/dL (8.5-10.1); MAGNESIUM 1.7 mg/dL (1.8-2.4); POTASSIUM 4.5 mmol/L (3.5-5.1); TOTAL BILIRUBIN 0.9 mg/dL (<0.1-1.0)
[2021-02-02 08:00] VITALS: BP 137/76
--- NOTE | 2021-02-02 09:55 | EKG ---
[place] [address] ELECTROCARDIOGRAM REPORT Name: SEAN MARCOS Room: [address] ADM IN [facility].#: [id number] Admission: 01/31/21 Attend Phys: Mita Hernandez, Discharge: Date of : 35 Date of Service: 01/31/212117 Report #: [id number] THIS REPORT FOR: //name// [facility] ED Test Date: 2021-01-31 Test Time: 21:18:49 Pat Name: SEAN MARCOS Department: Room: [facility] Gender: F Director Loss Prevention: : 1935 Requested By: Pari Duran Order Number: [id number] MD: Teodoro Rouse Measurements Intervals [place] Rate: 62 P: 0 [place]: 65 QRS: -68 QRSD: 157 T: 107 QT: 443 QTc: 450 Interpretive Statements A-V dual-paced rhythm with some inhibition No further analysis attempted due to paced rhythm Compared to ECG 01/07/2021 22:19:03 ventricular paced beats now noted Electronically Signed On 02-02-2021 9:54:47 CDT by Teodoro Rouse [email or web address] <ELECTRONICALLY SIGNED> By: Teodoro Rouse MD, FACC 02/02/21 0954 17 17 Teodoro Rouse MD, [facility] /EPI
[2021-02-02 12:00] VITALS: BP 149/65
--- NOTE | 2021-02-02 14:39 | 2DMMODE ---
[place] [address] 2 D/M-MODE ECHOCARDIOGRAM Name: SEAN MARCOS Room: [address] [place] .R.#: [id number] Admission: 01/31/21 Attend Phys: Mita Hernandez, Discharge: Date of : 35 Date of Service: 02/02/21 1438 Report #: [id number] THIS REPORT FOR: cc: Lg Madrid MD, Bruce D. MD Blick,Teodoro Huerta MD [facility] ~ APPROVED REPORT Study performed: 02/02/2021 09:36:55 EXAM: Comprehensive 2D, Doppler, and color-flow Echocardiogram Patient Location: Out-Patient BSA: 1.53 HR: 60 bpm BP: 137/76 mmHg Other Information Study Quality: Good Indications Congestive Heart Failure 2D Dimensions IVSd: 11.07 (7-11mm) LVOT Diam: 18.09 (18-24mm) LVDd: 40.57 mm PWd: 9.52 (7-11mm) Ascending Ao: 29.97 (22-36mm) LVDs: 28.40 (25-40mm) Aortic Root: 28.18 mm Volumes Left Atrial Volume (Systole) LA ESV Index: 32.90 mL/m2 Aortic Valve AoV Peak Sagar.: 1.47 m/s AO Peak Gr.: 8.70 mmHg LVOT Max P.93 mmHg AO Mean Gr.: 4.75 mmHg LVOT Mean P.83 mmHg LVOT Max V: 0.99 m/s AO V2 VTI: 24.44 cm LVOT Mean V: 0.62 m/s MARTY (VTI): 1.97 cm2 LVOT V1 VTI: 18.72 cm AI [place]: 2.29 m/s2 AI PHT: 512.10 [place] [address] 2 D/M-MODE ECHOCARDIOGRAM Name: SEAN MARCOS Room: [address] [place] ..#: [id number] Admission: 01/31/21 Attend Phys: Mita Hernandez, Discharge: Date of : 35 Date of Service: 02/02/21 1438 Report #: [id number] Mitral Valve MV Decel. Time: 152.66 ms MV PHT: 44.27 ms MVA (PHT): 4.97 cm2 TDI Medial E' Sagar.: 0.08 m/s Lateral E' Sagar.: 0.11 m/s Pulmonary Valve PV Peak Sagar.: 1.12 m/s PV Peak Gr.: 4.98 mmHg Tricuspid Valve RAP Estimate: 5.00 mmHg TR Peak Gr.: 54.42 mmHg RVSP: 59.42 mmHg PA Pressure: 59.42 mmHg Left Ventricle The left ventricle is normal size. There is normal LV segmental wall motion. There is normal left ventricular wall thickness. Left ventricular systolic function is normal. The left ventricular ejection fraction is within the normal range. LVEF is 55-60%. This study is not technically sufficient to allow evaluation of the LV diastolic function. Right Ventricle The right ventricle is normal size. The right ventricular systolic function is normal. Pacemaker lead is present in the right ventricle. Atria Left atrium is mildly dilated. Pacemaker lead is present in the right atrium. Aortic Valve The Aortic valve is sclerotic. moderate aortic regurgitation. There is no aortic valvular stenosis. Mitral Valve The mitral valve is normal in structure. Mild mitral regurgitation. No evidence of mitral valve stenosis. Tricuspid Valve The tricuspid valve is normal in structure. Moderate tricuspid regurgitation. estimated pa pressure 60 [place] [address] 2 D/M-MODE ECHOCARDIOGRAM Name: SEAN MARCOS Room: [address]#: [id number] Admission: 01/31/21 Attend Phys: Mita Hernandez, Discharge: Date of : 35 Date of Service: 02/02/21 1438 Report #: [id number] The pulmonary valve is normal in structure. There is trace pulmonic valvular regurgitation. Great Vessels The aortic root is normal in size. IVC is normal in size and collapses >50% with inspiration. Pericardium There is no pericardial effusion. Small left pleural effusion. <Conclusion> LVEF is 55-60%. Left atrium is mildly dilated. The Aortic valve is sclerotic. moderate aortic regurgitation. Mild mitral regurgitation. Moderate tricuspid regurgitation. estimated pa pressure 60 mm Hg <ELECTRONICALLY SIGNED> By: Teodoro Rouse MD, [facility] 02/02/21 1438 1438 1438 Teodoro Rouse MD, FACC /INF
[2021-02-02 15:54] VITALS: BP 131/53
[2021-02-02 20:00] VITALS: BP 138/59
[2021-02-03 00:56] VITALS: BP 108/63
[2021-02-03 04:00] VITALS: BP 136/54
[2021-02-03 04:14] LABS: HEMATOCRIT 25.5 % (37.0-47.0); HEMOGLOBIN 8.7 gm/dL (12.0-15.0); MCHC 34.3 g/dL (28.0-37.0); MCV 81.8 fL (80.0-100.0); MPV 7.5 fl. (7.2-11.1); RBC 3.11 mil/uL (4.20-5.00); RDW-CV 14.9 % (10.5-14.5); WBC 9.6 thou/uL (4.0-11.0)
[2021-02-03 04:18] LABS: MAGNESIUM 1.7 mg/dL (1.8-2.4); POTASSIUM 4.7 mmol/L (3.5-5.1)
[2021-02-03 08:00] VITALS: BP 150/59
[2021-02-03 12:19] VITALS: BP 137/50
[2021-02-03 16:36] VITALS: BP 125/52
[2021-02-04 05:29] VITALS: BP 149/66
[2021-02-04 05:47] LABS: HEMATOCRIT 27.2 % (37.0-47.0); HEMOGLOBIN 9.1 gm/dL (12.0-15.0); MCH 27.3 pg (26.0-34.0); MCHC 33.6 g/dL (28.0-37.0); MCV 81.5 fL (80.0-100.0); MPV 7.8 fl. (7.2-11.1); RBC 3.34 mil/uL (4.20-5.00); RDW-CV 15.5 % (10.5-14.5); WBC 7.2 thou/uL (4.0-11.0)
[2021-02-04 05:56] LABS: CALCIUM 8.1 mg/dL (8.5-10.1); CREATININE 1.1 mg/dL (0.6-1.3); POTASSIUM 4.2 mmol/L (3.5-5.1)
[2021-02-04 10:30] VITALS: BP 142/53
[2021-02-04 12:10] VITALS: BP 126/53
[2021-02-04] MEDS ORDERED: CEFDINIR300 MG PO (13:14)
[2021-02-04 13:36] VITALS: BP 126/53
== END 2021-02-04 15:00 | disposition home or self-care (01) | DRG 177 ==
LOC: M.ERS 21:10 → M.2W 23:43 → M.TBA-ER 23:43 → M.2W 02-01 00:04
PROVIDERS: Emergency Medicine; Family Medicine; ADMIT Internal Medicine; ATTEND Internal Medicine
PROC: 5A0935A Assistance with Respiratory Ventilation, Less than 24 Consecutive Hours, High Flow/Velocity Cannula (ICD-10-PCS; principal; 2021-02-01)
PROC: 5A0935A Assistance with Respiratory Ventilation, Less than 24 Consecutive Hours, High Flow/Velocity Cannula (ICD-10-PCS; 2021-02-02)
PROC: 5A0935A Assistance with Respiratory Ventilation, Less than 24 Consecutive Hours, High Flow/Velocity Cannula (ICD-10-PCS; 2021-02-03)
PROC: 5A0935A Assistance with Respiratory Ventilation, Less than 24 Consecutive Hours, High Flow/Velocity Cannula (ICD-10-PCS; 2021-02-04)
DX: J15.6 Pneumonia due to other Gram-negative bacteria (principal); J96.01 Acute respiratory failure with hypoxia; I50.33 Acute on chronic diastolic (congestive) heart failure; E87.1 Hypo-osmolality and hyponatremia; I48.0 Paroxysmal atrial fibrillation; I25.10 Atherosclerotic heart disease of native coronary artery without angina pectoris; I11.0 Hypertensive heart disease with heart failure; E78.5 Hyperlipidemia, unspecified; D64.9 Anemia, unspecified; Z20.822 Contact with and (suspected) exposure to COVID-19; Z90.49 Acquired absence of other specified parts of digestive tract; Z95.0 Presence of cardiac pacemaker; Z79.01 Long term (current) use of anticoagulants; Z79.899 Other long term (current) drug therapy; Z88.5 Allergy status to narcotic agent